=== PATIENT | female | born 1930 | race Two or more races ===

== ENCOUNTER 2021-06-19 11:48 | Inpatient (IN) | payer MEDICARE ==
[2021-06-19] MEDS ORDERED: SODIUM CHLORIDE 0.9% 500 ML 500 ML IV STA (12:27)
[2021-06-19] MEDS ORDERED: LIDOCAINE 1% INJ 10MG/ML (20 ML MDV) SQ ONE (12:28)
--- NOTE | 2021-06-19 12:30 | ED ---
General Adult HPI <Nessa Stockton - Last Filed: 06/19/21 15:45> - General Source: patient, RN notes reviewed, old records reviewed Mode of arrival: EMS Limitations: no limitations <Bruno Walker - Last Filed: 06/19/21 15:55> - General Chief complaint: Fall Stated complaint: Fall Time Seen by Provider: 06/19/21 12:00 - History of Present Illness Initial comments: This is an 89-year-old female presents emergency department stating that she was coming off of the steps and on the last step when she landed she lost her balance and fell Rogers hit her head. Patient denies any headache patient denies any numbness weakness. Patient denies any neck pain. Patient denies any loss of consciousness or being days. Patient denies being on any blood thinners. Patient denies any other complaints at this time. Patient denies chest pain palpitations difficulty breathing shortness breath. Patient denies any blurred vision. Patient denies abdominal pain patient has nausea vomiting diarrhea per patient denies any swelling to the legs. Patient denies any extremity injury at all. Patient states she is ALLERGIC to tetanus. (Bruno Walker) - Related Data Allergies Allergy/AdvReac Type Severity Reaction Status Date / Time amoxicillin Allergy Rash/Hives Verified 06/19/21 12:03 Sulfa (Sulfonamide Allergy Unknown Verified 06/19/21 12:03 Antibiotics) Tetanus Vaccines and Toxoid Allergy Unknown Verified 06/19/21 12:03 diavan Allergy Unknown Uncoded 06/19/21 12:03 Review of Systems ROS Other: All systems not noted in ROS Statement are negative. <Nessa Stockton - Last Filed: 06/19/21 15:45> ROS Other: All systems not noted in ROS Statement are negative. <Bruno Walker - Last Filed: 06/19/21 15:55> ROS Statement: Those systems with pertinent positive or pertinent negative responses have been documented in the HPI. Past Medical History Past Medical History: Heart Failure, Hyperlipidemia, Hypertension, Pneumonia, Thyroid Disorder Past Surgical History: Adenoidectomy, Cholecystectomy, Tonsillectomy Smoking Status: Never smoker Past Alcohol Use History: None Reported Past Drug Use History: None Reported <Bruno Walker - Last Filed: 06/19/21 15:55> General Exam Limitations: no limitations <Bruno Walker - Last Filed: 06/19/21 15:55> - General Exam Comments Initial Comments: GENERAL: Patient is well-developed and well-nourished. Patient is nontoxic and well- hydrated and is in mild distress. ENT: Neck is soft and supple. No significant lymphadenopathy is noted. Oropharynx is clear. Moist mucous membranes. Neck has full range of motion without eliciting any pain. EYES: The sclera were anicteric and conjunctiva were pink and moist. Extraocular movements were intact and pupils were equal round and reactive to light. Eyelids were unremarkable. PULMONARY: Unlabored respirations. Good breath sounds bilaterally. No audible rales rhonchi or wheezing was noted. CARDIOVASCULAR: There is a regular rate and rhythm without any murmurs gallops or rubs. ABDOMEN: Soft and nontender with normal bowel sounds. SKIN: Patient has a 3 cm laceration to the right eyebrow area. NEUROLOGIC: Patient is alert and oriented x3. Cranial nerves II through XII are grossly intact. Motor and sensory are also intact. Normal speech, volume and content. Symmetrical smile. MUSCULOSKELETAL: Normal extremities with adequate strength and full range of motion. No lower extremity swelling or edema. No calf tenderness. LYMPHATICS: No significant lymphadenopathy is noted PSYCHIATRIC: Normal psychiatric evaluation. N (Bruno Walker) Course Vital Signs 06/19/21 06/19/21 06/19/21 11:53 12:13 12:55 Temperature 97.8 F Pulse Rate 60 63 Respiratory 18 18 Rate Blood Pressure 240/120 254/96 O2 Sat by Pulse 99 99 Oximetry 06/19/21 06/19/21 13:59 14:26 Temperature Pulse Rate 53 L 60 Respiratory 18 18 Rate Blood Pressure 162/125 175/85 O2 Sat by Pulse 95 95 Oximetry Procedures - Laceration Laceration #1 Consent Obtained: verbal consent Indication: laceration Site: face (right eyebrow) Size (cm): 2 Description: linear Depth: simple, single layer Anesthetic Used: lidocaine 1% Anesthesia Technique: local infiltration Amount (mls): 3 Pre-repair: irrigated extensively Type of Sutures: nylon Size of Sutures: 5-0 Number of Sutures: 5 Technique: simple, interrupted Patient Tolerated Procedure: well <Nessa Stockton - Last Filed: 06/19/21 15:45> Medical Decision Making - Lab Data Result diagrams: 06/19/21 12:32 06/19/21 12:32 <Nessa Stockton - Last Filed: 06/19/21 15:45> - Lab Data Result diagrams: 06/19/21 12:32 06/19/21 12:32 <Bruno Walker - Last Filed: 06/19/21 15:55> - Medical Decision Making EKG shows sinus bradycardia 51 bpm [place] interval 284 QRS is 96 QT interval 72 QTC is 462 per patient's EKG shows no ST segment elevation. Patient has some slight ST segment depression in precordial leads V4 V5 and V6. Chest x-ray showed no acute abnormality. CT of the brain showed no acute abnormality. Patient expansion chest pain while in the emergency department was given aspirin nitro patient she stated the pain subsided. Patient does however have significant dementia as well for her to remember those symptoms but I in the emergency department when they occurred. I spoke with some physicians agreed to admit the patient admitted the patient wrote admitting orders. (Bruno Walker) - Lab Data Lab Results 06/19/21 06/19/21 06/19/21 Range/Units 12:32 12:32 12:32 WBC 4.2 (3.8-10.6) k/uL RBC 3.91 (3.80-5.40) m/uL Hgb 12.2 (11.4-16.0) gm/dL Hct 36.2 (34.0-46.0) % MCV 92.4 (80.0-100.0) fL MCH 31.1 (25.0-35.0) pg MCHC 33.6 (31.0-37.0) g/dL RDW 14.7 (11.5-15.5) % Plt Count 116 L (150-450) k/uL MPV 8.7 Neutrophils % 64 % Lymphocytes % 26 % Monocytes % 6 % Eosinophils % 2 % Basophils % 0 % Neutrophils # 2.6 (1.3-7.7) k/uL Lymphocytes # 1.1 (1.0-4.8) k/uL Monocytes # 0.3 (0-1.0) k/uL Eosinophils # 0.1 (0-0.7) k/uL Basophils # 0.0 (0-0.2) k/uL PT 11.4 (9.0-12.0) sec INR 1.1 (<1.2) APTT 24.8 (22.0-30.0) sec Sodium 137 (137-145) mmol/L Potassium 4.0 (3.5-5.1) mmol/L Chloride 107 (98-107) mmol/L Carbon Dioxide 23 (22-30) mmol/L Anion Gap 7 mmol/L BUN 20 H (7-17) mg/dL Creatinine 0.99 (0.52-1.04) mg/dL Est GFR (CKD-EPI)AfAm 59 (>60 ml/min/1.73 sqM) Est GFR (CKD-EPI)NonAf 51 (>60 ml/min/1.73 sqM) Glucose 98 (74-99) mg/dL Calcium 9.6 (8.4-10.2) mg/dL Magnesium 2.2 (1.6-2.3) mg/dL Total Bilirubin 2.3 H (0.2-1.3) mg/dL AST 29 (14-36) U/L ALT 17 (4-34) U/L Alkaline Phosphatase 94 (38-126) U/L Troponin I (0.000-0.034) ng/mL Total Protein 6.8 (6.3-8.2) g/dL Albumin 4.2 (3.5-5.0) g/dL 06/19/21 Range/Units 12:32 WBC (3.8-10.6) k/uL RBC (3.80-5.40) m/uL Hgb (11.4-16.0) gm/dL Hct (34.0-46.0) % MCV (80.0-100.0) fL MCH (25.0-35.0) pg MCHC (31.0-37.0) g/dL RDW (11.5-15.5) % Plt Count (150-450) k/uL MPV Neutrophils % % Lymphocytes % % Monocytes % % Eosinophils % % Basophils % % Neutrophils # (1.3-7.7) k/uL Lymphocytes # (1.0-4.8) k/uL Monocytes # (0-1.0) k/uL Eosinophils # (0-0.7) k/uL Basophils # (0-0.2) k/uL PT (9.0-12.0) sec INR (<1.2) APTT (22.0-30.0) sec Sodium (137-145) mmol/L Potassium (3.5-5.1) mmol/L Chloride (98-107) mmol/L Carbon Dioxide (22-30) mmol/L Anion Gap mmol/L BUN (7-17) mg/dL Creatinine (0.52-1.04) mg/dL Est GFR (CKD-EPI)AfAm (>60 ml/min/1.73 sqM) Est GFR (CKD-EPI)NonAf (>60 ml/min/1.73 sqM) Glucose (74-99) mg/dL Calcium (8.4-10.2) mg/dL Magnesium (1.6-2.3) mg/dL Total Bilirubin (0.2-1.3) mg/dL AST (14-36) U/L ALT (4-34) U/L Alkaline Phosphatase (38-126) U/L Troponin I <0.012 (0.000-0.034) ng/mL Total Protein (6.3-8.2) g/dL Albumin (3.5-5.0) g/dL Disposition <Nessa Stockton - Last Filed: 06/19/21 15:45> Time of Disposition: 15:55 <Bruno Walker - Last Filed: 06/19/21 15:55> Clinical Impression: Forehead laceration, Chest pain, Hypertensive urgency Disposition: ADMITTED IP TO THIS HOSP Referrals: Yu Dasilva MD [Primary Care Provider] - 1-2 days
[2021-06-19] MEDS ORDERED: hydrALAZINE HCL 20 MG/ML 1 ML VIAL IVP STA (12:31)
[2021-06-19 12:42] LABS: Basophils % (A) 0 %; Eosinophils # (A) 0.1 k/uL (0-0.7); Eosinophils % (A) 2 %; HCT 36.2 % (34.0-46.0); HGB 12.2 gm/dL (11.4-16.0); Lymphocytes # (A) 1.1 k/uL (1.0-4.8); Lymphocytes % (A) 26 %; MCH 31.1 pg (25.0-35.0); MCHC 33.6 g/dL (31.0-37.0); MCV 92.4 fL (80.0-100.0); Mean Platelet Volume 8.7; Monocytes # (A) 0.3 k/uL (0-1.0); Monocytes % (A) 6 %; Neutrophils # (A) 2.6 k/uL (1.3-7.7); Neutrophils % (A) 64 %; Platelet Count 116 k/uL (150-450); RBC 3.91 m/uL (3.80-5.40); RDW 14.7 % (11.5-15.5); WBC 4.2 k/uL (3.8-10.6)
[2021-06-19 12:56] LABS: INR 1.1 (<1.2); Partial Thromboplastin Time 24.8 sec (22.0-30.0); Prothrombin Time 11.4 sec (9.0-12.0)
[2021-06-19 12:57] LABS: Albumin 4.2 g/dL (3.5-5.0); Calcium 9.6 mg/dL (8.4-10.2); Magnesium 2.2 mg/dL (1.6-2.3); Total Bilirubin 2.3 mg/dL (0.2-1.3); Total Protein 6.8 g/dL (6.3-8.2)
[2021-06-19] MEDS ORDERED: ONDANSETRON 4 MG/2 ML VIAL IVP STA (14:11)
[2021-06-19] MEDS ORDERED: ASPIRIN 81 MG PO STA (14:11)
[2021-06-19] MEDS ORDERED: NITROGLYCERIN OINT 1 INCH/GM PACKET TOPICAL STA (14:11)
--- NOTE | 2021-06-19 14:18 | CT ---
EXAMINATION TYPE: CT brain dale nunez con DATE OF EXAM: 06/19/2021 COMPARISON: NONE HISTORY: Fall today. Head injury and neck pain. CT DLP: 1314 mGycm. Automated Exposure Control for Dose Reduction was Utilized. TECHNIQUE: CT scan of the head and cervical spine are performed without contrast. FINDINGS: There is no acute intracranial hemorrhage or midline shift identified. Mild ventricular a nd sulcal prominence. Moderate low-attenuation in the periventricular white matter. The calvarium is intact. The globes are intact and the visualized sinuses are clear. Cervical spine is visualized in its entirety from C1 through upper thoracic levels and demonstrates s atisfactory alignment without evidence of acute fracture or dislocation. Prevertebral soft tissue ap pears within normal limits. The C1-C2 articulation is within normal limits on the coronal images. V ertebral body heights are maintained. Moderate disc space narrowing and spurring C4-C5 and C5-C6 leve ls. Osseous structures are demineralized. Posterior spur disc complex effacing the anterior thecal sa c at C4-C5 level. Review of axial images shows multilevel uncovertebral facet degenerative changes contributing to fora rose narrowing. Reference right C3-C4 and C4-C5 levels. Lung apices show no pneumothorax. Mild calci fied plaque bilateral carotid bulb level is present. IMPRESSION: 1. There is no acute fracture or dislocation evident in the cervical spine. 2. No acute intracranial hemorrhage or midline shift is seen.
--- NOTE | 2021-06-19 14:45 | XR ---
EXAMINATION TYPE: XR chest 2V DATE OF EXAM: 06/19/2021 COMPARISON: NONE HISTORY: Fall injury today with pain. TECHNIQUE: Frontal and lateral views of the chest are obtained. FINDINGS: The osseous structures are demineralized. Persistent cardiomegaly with atherosclerotic tho racic aorta. Reticular interstitial prominence favoring chronic parenchymal changes bilaterally witho ut suspicious focal airspace opacity, significant pleural effusion, or pneumothorax seen bilaterally. . IMPRESSION: Cardiomegaly and chronic parenchyma changes without acute pulmonary process.
[2021-06-19] MEDS ORDERED: NITROGLYCERIN SL TABS 0.4 MG TAB SUBLINGUAL PRN (15:56)
--- NOTE | 2021-06-19 16:52 | P.HPIM ---
History of Present Illness H&P Date: 06/19/21 Chief Complaint: Fall This is an 89-year-old female presents emergency department stating that she was coming off of the steps and on the last step when she landed she lost her balance and fell Rogers hit her head. Patient denies any headache patient denies any numbness weakness. Patient denies any neck pain. Patient denies any loss of consciousness or being days. Patient denies being on any blood thinners. Patient denies any other complaints at this time. Patient denies chest pain palpitations difficulty breathing shortness breath. Patient denies any blurred vision. Patient denies abdominal pain patient has nausea vomiting diarrhea per patient denies any swelling to the legs. Patient denies any extremity injury at all. Patient states she is ALLERGIC to tetanus. Patient currently feels okay chest pain resolved patient is a poor historian has been also having some confusion Review of systems and systems has been reviewed all negative and positive findings as per history of present illness Constitutional: No acute distress, conversant, pleasant Eyes: Anicteric sclerae, moist conjunctiva, no lid-lag PERRLA ENMT: NC/AT Oropharynx clear, no erythema, exudates Neck: Supple, FROM, no masses, or JVD No carotid bruits No thyromegaly Lungs: Clear to auscultation Clear to percussion Normal respiratory effort, no accessory muscle use Cardiovascular: Heart regular in rate and rhythm, No murmurs, gallops, or rubs No peripheral edema Abdominal: Soft Nontender, no guarding, rebound or rigidity Abdomen moving with respiration Normoactive bowel sounds No hepatomegaly, No splenomegaly No palpable mass No abdominal wall hernia noted Skin: Normal temperature, tone, texture, turgor No induration No subcutaneous nodules No rash, lesions No ulcers Extremities: No digital cyanosis No clubbing Pedal pulses intact and symmetrical Radial pulses intact and symmetrical Normal gait and station No calf tenderness Psychiatric:Alert and oriented to person, place and time Appropriate affect Intact judgement Neuro: Muscles Strength 5/5 in all 4 extremities Sensation to light touch grossly present throughout Cranial nerves II-XII grossly intact No focal sensory deficits Hypertensive urgency currently resolved we'll monitor overnight Chest pain with typical and atypical features observe overnight Fall no evidence of acute coronary syndrome or CVA at this time check cardiac enzymes and monitor Mild confusion likely due to dementia Possible discharge to the assisting living in a.m. if cardiac enzymes are negative and is the patient is not more confused Past Medical History Past Medical History: Heart Failure, Hyperlipidemia, Hypertension, Pneumonia, Thyroid Disorder Past Surgical History: Adenoidectomy, Cholecystectomy, Tonsillectomy Smoking Status: Never smoker Past Alcohol Use History: None Reported Past Drug Use History: None Reported Medications and Allergies Home Medications Medication Instructions Recorded Confirmed Type Atorvastatin [Lipitor] 20 mg PO HS 06/19/21 06/19/21 History Calcium/Magnesium/Zinc 1 tab PO DAILY 06/19/21 06/19/21 History [Rjjmndf-Bnjzrpqki-Jlox Tablet] Carvedilol [Coreg] 25 mg PO BID-W/MEALS 06/19/21 06/19/21 History Cyanocobalamin (Vitamin B-12) 5,000 mcg PO DAILY 06/19/21 06/19/21 History [Vitamin B12] Doxazosin [Cardura] 4 mg PO HS 06/19/21 06/19/21 History Escitalopram Oxalate [Lexapro] 10 mg PO DAILY 06/19/21 06/19/21 History Famotidine 40 mg PO DAILY 06/19/21 06/19/21 History Furosemide [Lasix] 20 mg PO DAILY 06/19/21 06/19/21 History Levothyroxine Sodium [Synthroid] 88 mcg PO DAILY 06/19/21 06/19/21 History Losartan Potassium 100 mg PO HS 06/19/21 06/19/21 History Potassium Chloride [Potassium 8 meq PO DAILY 06/19/21 06/19/21 History Chloride ER] Vit C/E/Zn/Coppr/Lutein/Zeaxan 1 cap PO BID 06/19/21 06/19/21 History [Preservision Areds 2 Softgel] Allergies Allergy/AdvReac Type Severity Reaction Status Date / Time amoxicillin Allergy Rash/Hives Verified 06/19/21 16:08 Sulfa (Sulfonamide Allergy Unknown Verified 06/19/21 16:08 Antibiotics) Tetanus Vaccines and Toxoid Allergy Unknown Verified 06/19/21 16:08 valsartan [From Diovan] Allergy Unknown Verified 06/19/21 16:08 Physical Exam Vitals: Vital Signs Temp Pulse Resp BP Pulse Ox 06/19/21 16:00 58 L 18 162/77 95 06/19/21 14:26 60 18 175/85 95 06/19/21 13:59 53 L 18 162/125 95 06/19/21 12:55 63 18 254/96 99 06/19/21 12:13 240/120 06/19/21 11:53 97.8 F 60 18 99 Intake and Output 06/19/21 06/19/21 06/19/21 06:59 14:59 22:59 Other: Weight 46.266 kg Results CBC & Chem 7: 06/19/21 12:32 06/19/21 12:32 Labs: Abnormal Lab Results - Last 24 Hours (Table) 06/19/21 06/19/21 Range/Units 12:32 12:32 Plt Count 116 L (150-450) k/uL BUN 20 H (7-17) mg/dL Total Bilirubin 2.3 H (0.2-1.3) mg/dL
[2021-06-19] MEDS ORDERED: ONDANSETRON 4 MG/2 ML VIAL IVP PRN (16:56)
[2021-06-19] MEDS ORDERED: ACETAMINOPHEN TAB 325 MG TAB PO PRN (16:56)
[2021-06-19] MEDS ORDERED: traMADol 50 MG TAB PO PRN (16:56)
[2021-06-19] MEDS: NITROGLYCERIN OINT 1 INCH/GM PACKET TOPICAL SCH (19:59)
[2021-06-19] MEDS: LOSARTAN 50 MG TAB PO SCH (19:59)
[2021-06-19] MEDS: DOXAZOSIN 4 MG TAB PO SCH (19:59)
[2021-06-19] MEDS: ATORVASTATIN 20 MG TAB PO SCH (19:59)
[2021-06-20] MEDS: NITROGLYCERIN OINT 1 INCH/GM PACKET TOPICAL SCH ×2 (00:55→05:59)
[2021-06-20] MEDS: LEVOTHYROXINE 88 MCG TAB PO SCH (05:59)
[2021-06-20] MEDS ORDERED: ASPIRIN 325 MG TAB PO SCH (09:00)
[2021-06-20 09:01] LABS: Basophils # (A) 0.01 X 10*3/uL (0.00-0.10); Basophils % (A) 0.2 %; Eosinophils # (A) 0.05 X 10*3/uL (0.04-0.35); HCT 31.2 % (37.2-46.3); HGB 10.1 g/dL (12.0-15.0); Lymphocytes # (A) 0.88 X 10*3/uL (0.90-5.00); Lymphocytes % (A) 17.4 %; MCH 30.3 pg (27.0-32.0); MCHC 32.4 g/dL (32.0-37.0); MCV 93.7 fL (80.0-97.0); Mean Platelet Volume 11.8 fL (9.5-12.2); Monocytes # (A) 0.48 X 10*3/uL (0.20-1.00); Monocytes % (A) 9.5 %; Neutrophils % (A) 71.3 %; Platelet Count 110 X 10*3/uL (140-440); RBC 3.33 X 10*6/uL (4.10-5.20); RDW 15.1 % (11.5-14.5); WBC 5.05 X 10*3/uL (4.50-10.00)
[2021-06-20 09:32] LABS: Chol/HDL Ratio 2.22 Ratio; LDL Cholesterol,Calculated 52.5 mg/dL (0.0-131.0)
[2021-06-20 09:36] LABS: ALT 11 U/L (8-44); AST 23 U/L (13-35); African American GFR (CKD) 46.4 (60.0-200.0); Albumin 3.6 g/dL (3.8-4.9); Albumin/Globulin Ratio 2.25 (1.60-3.17); Alkaline Phosphatase 82 U/L (41-126); BUN/Creat Ratio 16.67 Ratio (12.00-20.00); Calcium 8.8 mg/dL (8.7-10.3); Carbon Dioxide 22.6 mmol/L (21.6-31.8); Chloride 108 mmol/L (96-109); Globulin 1.6 g/dL (1.6-3.3); Glucose 89 mg/dL (70-110); Potassium 3.5 mmol/L (3.5-5.5); Sodium 144 mmol/L (135-145); Total Protein 5.2 g/dL (6.2-8.2)
[2021-06-20] MEDS: carvediloL 12.5 MG TAB PO SCH ×2 (09:43→18:18)
[2021-06-20] MEDS: ESCITALOPRAM 10 MG TAB PO SCH (09:44)
[2021-06-20] MEDS: ASPIRIN 81 MG PO SCH (09:45)
[2021-06-20 10:07] VITALS: BMI 18.0
--- NOTE | 2021-06-20 11:06 | P.CRDCN ---
History of Present Illness History of present illness: HISTORY OF PRESENTING ILLNESS This is a pleasant 89-year-old female past medical history significant for hypertension, dyslipidemia and hypothyroidism. She denies prior history of coronary artery disease and does not follow in the office with a culturist. She is somewhat of a poor historian. Information is mostly obtained from nursing staff and medical record however the patient doesn't answer questions about the situation appropriately. We have been asked to see in consultation for chest pain. She states she was getting off the bus when she tripped over a curb causing her to fall. She denies syncope. She struck her face and has a laceration over the right eye with a bandage in place. She complains of feeling discomfort in her chest prior to falling. She denies shortness of breath, dizziness or palpitations. Blood pressure on arrival was 240/120 and 254/96. DIAGNOSTICS EKG reveals sinus bradycardia heart rate of [address] abnormalities in the lateral leads. Telemetry tracings indicate sinus rhythm. Chest xray chronic parenchymal changes with no acute cardiopulmonary process. CT head and C-spine unremarkable. Laboratory reviewed, WBC 5, hemoglobin 10.1, platelets 110, sodium 144, potassium 3.5, creatinine 1.2, magnesium 2.2, troponin negative 2, 0.250, 0.142, LDL 52 and HDL 54. Current cardiac medications include Coreg 25 mg twice a day, atorvastatin 20 mg at bedtime, doxazosin 4 mg at bedtime, Lasix 20 mg daily and losartan 100 mg at bedtime. REVIEW OF SYSTEMS At the time of my exam: CONSTITUTIONAL: Denies fever or chills. CARDIOVASCULAR: Denies chest pain, shortness of breath, orthopnea, PND or palpitations. RESPIRATORY: Denies cough. GASTROINTESTINAL: Denies abdominal pain, diarrhea, constipation, nausea or vomiting. MUSCULOSKELETAL: Denies myalgias. NEUROLOGIC: Denies numbness, tingling, headache or weakness. ENDOCRINE: Denies fatigue, weight change, polydipsia or polyurina. GENITOURINARY: Denies burning, hematuria or urgency with micturation. HEMATOLOGIC: Denies history of anemia or bleeding. PHYSICAL EXAMINATION Blood pressure 169/69 heart rate 56 afebrile and maintaining oxygen saturation on room air. CONSTITUTIONAL: No apparent distress. HEENT: Head is normocephalic. Pupils are equal, round. Sclerae anicteric. Mucous membranes of the mouth are moist. No JVD. No carotid bruit. CHEST EXAMINATION: Lungs are clear to auscultation. No chest wall tenderness is noted on palpation or with deep breathing. HEART EXAMINATION: Regular rate and rhythm. S1, S2 heard. Systolic ejection murmur at the base, no gallops or rub. ABDOMEN: Soft, nontender. EXTREMITIES: 2+ peripheral pulses, no lower extremity edema and no calf tenderness. NEUROLOGIC EXAMINATION: Patient is awake, alert and oriented x3. ASSESSMENT Mechanical fall NSTEMI Chest pain Hypertensive emergency Dyslipidemia Altered mental status PLAN Repeat troponin to assess trend. Obtain 2D echocardiogram and doppler study to assess cardiac structure and function. Add imdur 30 mg daily. Give lovenox 40 mg SQ daily. Continue maximum medical therapy. We will continue to follow closely. Nurse Practitioner note has been reviewed, I agree with a documented findings and plan of care. Patient was seen and examined. Past Medical History Past Medical History: Heart Failure, Hyperlipidemia, Hypertension, Pneumonia, Thyroid Disorder History of Any Multi-Drug Resistant Organisms: None Reported Past Surgical History: Adenoidectomy, Cholecystectomy, Tonsillectomy Smoking Status: Never smoker Past Alcohol Use History: None Reported Past Drug Use History: None Reported Medications and Allergies Home Medications Medication Instructions Recorded Confirmed Type Atorvastatin [Lipitor] 20 mg PO HS 06/19/21 06/19/21 History Calcium/Magnesium/Zinc 1 tab PO DAILY 06/19/21 06/19/21 History [Ykapdrk-Khknluwai-Lpxl Tablet] Carvedilol [Coreg] 25 mg PO BID-W/MEALS 06/19/21 06/19/21 History Cyanocobalamin (Vitamin B-12) 5,000 mcg PO DAILY 06/19/21 06/19/21 History [Vitamin B12] Doxazosin [Cardura] 4 mg PO HS 06/19/21 06/19/21 History Escitalopram Oxalate [Lexapro] 10 mg PO DAILY 06/19/21 06/19/21 History Famotidine 40 mg PO DAILY 06/19/21 06/19/21 History Furosemide [Lasix] 20 mg PO DAILY 06/19/21 06/19/21 History Levothyroxine Sodium [Synthroid] 88 mcg PO DAILY 06/19/21 06/19/21 History Losartan Potassium 100 mg PO HS 06/19/21 06/19/21 History Potassium Chloride [Potassium 8 meq PO DAILY 06/19/21 06/19/21 History Chloride ER] Vit C/E/Zn/Coppr/Lutein/Zeaxan 1 cap PO BID 06/19/21 06/19/21 History [Preservision Areds 2 Softgel] Allergies Allergy/AdvReac Type Severity Reaction Status Date / Time amoxicillin Allergy Rash/Hives Verified 06/19/21 16:08 Sulfa (Sulfonamide Allergy Unknown Verified 06/19/21 16:08 Antibiotics) Tetanus Vaccines and Toxoid Allergy Unknown Verified 06/19/21 16:08 valsartan [From Diovan] Allergy Unknown Verified 06/19/21 16:08 Physical Exam Vitals: Vital Signs Temp Pulse Pulse Resp BP BP Pulse Ox 06/20/21 07:00 97.9 F 56 L 18 169/69 98 06/20/21 02:39 61 16 06/20/21 01:00 98.3 F 61 16 179/65 97 06/19/21 20:00 97.8 F 67 14 121/63 97 06/19/21 19:59 67 14 06/19/21 17:50 97.4 F L 16 177/58 98 06/19/21 17:09 60 18 112/61 96 06/19/21 16:00 58 L 18 162/77 95 06/19/21 14:26 60 18 175/85 95 06/19/21 13:59 53 L 18 162/125 95 06/19/21 12:55 63 18 254/96 99 06/19/21 12:13 240/120 06/19/21 11:53 97.8 F 60 18 99 Intake and Output 06/19/21 06/20/21 06/20/21 22:59 06:59 14:59 Intake Total 180 Balance 180 Intake: Oral 180 Other: Voiding Method Toilet Toilet # Voids 1 0 Weight 46.266 kg Results 06/20/21 05:56 06/20/21 05:56 Cardiac Enzymes 06/19/21 06/19/21 06/19/21 Range/Units 12:32 12:32 17:05 AST 29 (14-36) U/L Troponin I <0.012 <0.012 (0.000-0.034) ng/mL 06/19/21 06/19/21 Range/Units 21:05 22:42 AST (14-36) U/L Troponin I 0.142 H* 0.250 H* (0.000-0.034) ng/mL Coagulation 06/19/21 Range/Units 12:32 PT 11.4 (9.0-12.0) sec APTT 24.8 (22.0-30.0) sec CBC 06/19/21 Range/Units 12:32 WBC 4.2 (3.8-10.6) k/uL RBC 3.91 (3.80-5.40) m/uL Hgb 12.2 (11.4-16.0) gm/dL Hct 36.2 (34.0-46.0) % Plt Count 116 L (150-450) k/uL Comprehensive Metabolic Panel 06/19/21 Range/Units 12:32 Sodium 137 (137-145) mmol/L Potassium 4.0 (3.5-5.1) mmol/L Chloride 107 (98-107) mmol/L Carbon Dioxide 23 (22-30) mmol/L BUN 20 H (7-17) mg/dL Creatinine 0.99 (0.52-1.04) mg/dL Glucose 98 (74-99) mg/dL Calcium 9.6 (8.4-10.2) mg/dL AST 29 (14-36) U/L ALT 17 (4-34) U/L Alkaline Phosphatase 94 (38-126) U/L Total Protein 6.8 (6.3-8.2) g/dL Albumin 4.2 (3.5-5.0) g/dL Current Medications Generic Name Dose Route Start Last Admin Trade Name Freq PRN Reason Stop Dose Admin Acetaminophen 650 mg 06/19/21 16:56 Acetaminophen Tab 325 Mg Tab PO Q6HR PRN Mild Pain or Fever > 100.5 Aspirin 81 mg 06/20/21 09:00 Aspirin 81 Mg PO DAILY OTILIO Atorvastatin Calcium 20 mg 06/19/21 21:00 06/19/21 19:59 Atorvastatin 20 Mg Tab PO 20 mg HS OTILIO Administration Carvedilol 25 mg 06/20/21 07:30 Carvedilol 12.5 Mg Tab PO BID-W/MEALS OTILIO Doxazosin Mesylate 4 mg 06/19/21 21:00 06/19/21 19:59 Doxazosin 4 Mg Tab PO 4 mg HS OTILIO Administration Escitalopram Oxalate 10 mg 06/20/21 09:00 Escitalopram 10 Mg Tab PO DAILY OTILIO Levothyroxine Sodium 88 mcg 06/20/21 06:30 06/20/21 05:59 Levothyroxine 88 Mcg Tab PO 88 mcg 0630 OTILIO Administration Losartan Potassium 100 mg 06/19/21 21:00 06/19/21 19:59 Losartan 50 Mg Tab PO 100 mg HS OTILIO Administration Nitroglycerin 0.4 mg 06/19/21 15:56 Nitroglycerin Sl Tabs 0.4 Mg Tab SUBLINGUAL Q5M PRN Chest Pain Nitroglycerin 1 inch 06/19/21 18:00 06/20/21 05:59 Nitroglycerin Oint 1 Inch/Gm Packet TOPICAL 1 inch Q6HR OTILIO Administration Ondansetron HCl 4 mg 06/19/21 16:56 Ondansetron 4 Mg/2 Ml Vial IVP Q8HR PRN Nausea And Vomiting Tramadol HCl 50 mg 06/19/21 16:56 Tramadol 50 Mg Tab PO Q6H PRN Moderate Pain Intake and Output 06/19/21 06/20/21 06/20/21 22:59 06:59 14:59 Intake Total 180 Balance 180 Intake: Oral 180 Other: Voiding Method Toilet Toilet # Voids 1 0 Weight 46.266 kg 06/19/21 12:32 06/19/21 12:32
[2021-06-20] MEDS: ENOXAPARIN 40 MG/0.4 ML SYRINGE SQ SCH (11:45)
[2021-06-20] MEDS: ISOSORBIDE MONONITRATE ER 30 MG TAB.ER.24H PO SCH (11:45)
--- NOTE | 2021-06-20 12:10 | P.PN ---
Subjective Progress Note Date: 06/20/21 Hospital course: Patient is a very pleasant 89-year-old female with a past medical history of CAD, CHF, hypertension, hyperlipidemia, and hypothyroidism. She presents to the emergency department on with a chief complaint of mechanical fall in which patient tripped upon getting off of breath resulting in injury to her head. In the emergency department patient was found to have hypertensive emergency with blood pressure of 240/120 followed by 254/96 followed by patient's complaints of chest pain. CT head negative for acute intercranial process and CT cervical spine showing no acute fracture or dislocation to cervical spine. Chest x-ray negative for acute cardiopulmonary process positive for cardiomegaly with chronic parenchymal changes. EKG completed showing sinus bradycardia at 51 bpm. Initial troponin less than 0.0122 draws followed by 0.142, 0.250, and 0.735. Patient is currently admitted under our services for treatment of NSTEMI with consultation to cardiology. Cardiology recommending continued trending of troponin, obtaining 2-D echocardiogram, and added Imdur to current daily medication regimen. Currently blood pressure stabilized at 169/69. Physical exam: Patient seen and fully evaluated at bedside. She is sitting up in chair and reports feeling "much better" this morning. She was alert to person, place, and situation. She reports that she did have some chest pain last night, but currently reports "it's all gone." Patient states only complaint is pain in her right hand. Vital signs reviewed and stable. General: Nontoxic, no distress and appears stated age. Derm: Skin warm and dry, normal coloration for ethnicity. Small bruise to palmar surface of right hand Head: Normocephalic and symmetric. Eyes: No lid lag, and anicteric sclera. Patient with mild bruising to right orbital region and small laceration above right eyebrow with dressing in place. Mouth: no lip lesions, mucus membranes moist Cardiovascular: regular rate and rhythm with normal S1S2, murmur present, positive posterior tibial pulses bilaterally, and cap refill < 2 seconds. Lungs: Respirations even, regular, and unlabored on room air. Lungs CTA bilaterally, no rhonchi, no rales, no wheezing, and no accessory muscle usage. Abdominal: soft, nontender to palpation, no guarding, no appreciable organomegaly Ext: ROM intact. No gross muscle atrophy, no edema, no contractures Neuro: Speech clear, face symmetrical and CN II-XII grossly intact with no noted focal neuro deficits Psych: Alert and oriented to person, place, time, and situation. Appropriate and pleasant affect. Assessment and Plan of Care: NSTEMI -Initial troponin less than 0.0122 draws followed by 0.142, 0.250, and 0.735. -EKG completed showing sinus bradycardia at 51 bpm -Cardiology following, recommending maximum medical therapy -Telemetry monitoring -Cardiac diet -Continuation of daily Aspirin, atorvastatin, carvedilol, Imdur, and losartan -Echocardiogram completed, awaiting results. -Lipid profile with a.m. labs Mechanical fall Head injury -CT head negative for acute intercranial process and CT cervical spine showing no acute fracture or dislocation to cervical spine. -Patient complaining of pain to right hand, mild bruising noted to palmar surface. X-ray to be completed. -Fall precautions -Symptomatic care and pain management Hypertensive emergency, improved -Monitor vital signs and continue medication regimen with carvedilol, Imdur, and losartan. Hyperlipidemia -Continue daily medication regimen with atorvastatin 20 mg nightly. -Heart healthy diet -Lipid profile with a.m. labs Hypothyroidism -Continue daily medication regimen L thyroxine 88 g each morning. CODE STATUS: Full code DVT prophylaxis: Lovenox Discussed with: Patient and RN Anticipated discharge date: 1-[address]: Home A total of 45 minutes was spent on the care of this complex patient more than 50% of the time was spent in counseling and care coordination. Objective - Vital Signs Vital signs: Vital Signs Temp 97.9 F 06/20/21 07:00 Pulse 56 L 06/20/21 08:00 Resp 18 06/20/21 08:00 BP 169/69 06/20/21 07:00 Pulse Ox 98 06/20/21 07:00 Intake & Output 06/19/21 06/20/21 06/20/21 18:59 06:59 18:59 Intake Total 180 Balance 180 Weight 46.266 kg 46.266 kg Intake: Oral 180 Other: Voiding Method Toilet Toilet # Voids 0 1 - Labs CBC & Chem 7: 06/20/21 05:56 06/20/21 05:56 Labs: Abnormal Lab Results - Last 24 Hours (Table) 06/19/21 06/19/21 06/19/21 Range/Units 12:32 12:32 21:05 RBC (4.10-5.20) X 10*6/uL Hgb (12.0-15.0) g/dL Hct (37.2-46.3) % RDW (11.5-14.5) % Plt Count 116 L (150-450) k/uL Lymphocytes # (0.90-5.00) X 10*3/uL Anion Gap (4.00-12.00) mmol/L BUN 20 H (7-17) mg/dL Est GFR (CKD-EPI)AfAm (60.0-200.0) Est GFR (CKD-EPI)NonAf (60.0-200.0) Total Bilirubin 2.3 H (0.2-1.3) mg/dL Troponin I 0.142 H* (0.000-0.034) ng/mL Total Protein (6.2-8.2) g/dL Albumin (3.8-4.9) g/dL 06/19/21 06/20/21 06/20/21 Range/Units 22:42 05:56 05:56 RBC 3.33 L (4.10-5.20) X 10*6/uL Hgb 10.1 L (12.0-15.0) g/dL Hct 31.2 L (37.2-46.3) % RDW 15.1 H (11.5-14.5) % Plt Count 110 L (150-450) k/uL Lymphocytes # 0.88 L (0.90-5.00) X 10*3/uL Anion Gap 13.40 H (4.00-12.00) mmol/L BUN (7-17) mg/dL Est GFR (CKD-EPI)AfAm 46.4 L (60.0-200.0) Est GFR (CKD-EPI)NonAf 40.0 L (60.0-200.0) Total Bilirubin 1.80 H (0.2-1.3) mg/dL Troponin I 0.250 H* (0.000-0.034) ng/mL Total Protein 5.2 L (6.2-8.2) g/dL Albumin 3.6 L (3.8-4.9) g/dL 06/20/21 Range/Units 05:56 RBC (4.10-5.20) X 10*6/uL Hgb (12.0-15.0) g/dL Hct (37.2-46.3) % RDW (11.5-14.5) % Plt Count (150-450) k/uL Lymphocytes # (0.90-5.00) X 10*3/uL Anion Gap (4.00-12.00) mmol/L BUN (7-17) mg/dL Est GFR (CKD-EPI)AfAm (60.0-200.0) Est GFR (CKD-EPI)NonAf (60.0-200.0) Total Bilirubin (0.2-1.3) mg/dL Troponin I 0.735 H* (0.000-0.034) ng/mL Total Protein (6.2-8.2) g/dL Albumin (3.8-4.9) g/dL
--- NOTE | 2021-06-20 12:39 | XR ---
EXAMINATION TYPE: XR hand complete RT DATE OF EXAM: 06/20/2021 COMPARISON: NONE HISTORY: 89-year-old female fall and hand pain TECHNIQUE: 3 views FINDINGS: Moderate to advanced osteoarthritic changes especially at the IP joints and to a lesser degree at the PIP joints. Prominent marginal spurring and joint space narrowing is present. There is additional yasmin int space narrowing noted at the third MCP joint. No soft tissue calcifications. No definite marginal erosions. Radial and ulnar deviation deformities of the fingers due to the underlying arthropathy. Ulnar-sided soft tissue swelling. Negative ulnar variance noted. No acute fracture, subluxation, disl ocation. Oivp-be-ohioyhbb degenerative change base of the thumb. Possible subtle cortical step off along the radial sided cortical margin of the fifth proximal metaca rpal base seen only on the AP view. IMPRESSION: 1. Possible subtle cortical step off radial sided metacarpal base only seen on the AP view. If pain l ocalizes here, a subtle nondisplaced fractures difficult to exclude. 2. Prominent ulnar-sided soft tissue swelling at the wrist and hand. 3. Moderate to advanced osteoarthritic changes throughout the fingers.
[2021-06-20] MEDS: ATORVASTATIN 20 MG TAB PO SCH (19:10)
[2021-06-20] MEDS: DOXAZOSIN 4 MG TAB PO SCH (19:10)
[2021-06-20] MEDS: LOSARTAN 50 MG TAB PO SCH (19:11)
[2021-06-20] MEDS ORDERED: MELATONIN 5 MG TABLET PO STA (22:12)
[2021-06-21] MEDS: LEVOTHYROXINE 88 MCG TAB PO SCH (05:52)
--- NOTE | 2021-06-21 07:37 | ECHOF ---
Referral Reason:trop elev, syncope MEASUREMENTS -------- HEIGHT: 160.0 cm WEIGHT: 46.3 kg BP: 169/69 RVIDd: 2.6 cm (< 3.3) IVSd: 1.4 cm (0.6 - 1.1) LVIDd: 3.5 cm (3.9 - 5.3) LVPWd: 1.4 cm (0.6 - 1.1) IVSs: 1.8 cm LVIDs: 2.1 cm LVPWs: 2.0 cm LA Diam: 3.7 cm (2.7 - 3.8) LAESV Index (A-L): 28.64 ml/m Ao Diam: 2.9 cm (2.0 - 3.7) AV Cusp: 2.0 cm (1.5 - 2.6) MV EXCURSION: 12.690 mm (> 18.000) MV EF SLOPE: 45 mm/s (70 - 150) EPSS: 0.4 cm MV E Isael: 1.26 m/s MV DecT: 376 ms MV A Isael: 1.10 m/s MV E/A Ratio: 1.15 RAP: 5.00 mmHg RVSP: 45.35 mmHg FINDINGS -------- Resting bradycardia (HR<60bpm). This was a technically adequate study. The left ventricular size is normal. There is moderate concentric left ventricular hypertrophy. O verall left ventricular systolic function is normal with, an EF between 60 - 65 %. The right ventricle is normal in size. Normal LA size by volume 22+/-6 ml/m2. The right atrium is normal in size. Interatrial and interventricular septum intact. There is mild aortic valve sclerosis. The mitral valve leaflets are mildly thickened. Mild mitral annular calcification present. Mild m itral regurgitation is present. The peak and mean MV gradients are 13.37mmHg 4.34mmHg as measured by doppler. Iabn-yr-xujjwpjm tricuspid regurgitation present. There is mild to moderate pulmonary hypertension. The right ventricular systolic pressure, as measured by Doppler, is 45.35mmHg. The pulmonic valve was not well visualized. The aortic root size is normal. Normal inferior vena cava with normal inspiratory collapse consistent with estimated right atrial pre ssure of 5 mmHg. There is no pericardial effusion. CONCLUSIONS -------- 1. The left ventricular size is normal. 2. There is moderate concentric left ventricular hypertrophy. 3. Overall left ventricular systolic function is normal with, an EF between 60 - 65 %. 4. There is mild aortic valve sclerosis. 5. The mitral valve leaflets are mildly thickened. 6. Mild mitral annular calcification present. 7. Mild mitral regurgitation is present. 8. The peak and mean MV gradients are 13.37mmHg 4.34mmHg as measured by doppler. 9. Srju-jh-pkfrflqm tricuspid regurgitation present. 10. There is mild to moderate pulmonary hypertension. 11. The right ventricular systolic pressure, as measured by Doppler, is 45.35mmHg. 12. The aortic root size is normal. 13. There is no pericardial effusion. BAND SEWER: Elisa Ronquillo RDCS
[2021-06-21] MEDS: ESCITALOPRAM 10 MG TAB PO SCH (07:45)
[2021-06-21] MEDS: ASPIRIN 81 MG PO SCH (07:46)
[2021-06-21] MEDS: ISOSORBIDE MONONITRATE ER 30 MG TAB.ER.24H PO SCH (07:46)
[2021-06-21] MEDS: ENOXAPARIN 40 MG/0.4 ML SYRINGE SQ SCH (07:46)
[2021-06-21] MEDS: carvediloL 12.5 MG TAB PO SCH (08:07)
[2021-06-21 09:00] LABS: African American GFR (CKD) 49.4 (60.0-200.0); BUN/Creat Ratio 19.65 Ratio (12.00-20.00); Blood Urea Nitrogen 22.4 mg/dL (9.0-27.0); Calcium 8.7 mg/dL (8.7-10.3); Carbon Dioxide 23.3 mmol/L (21.6-31.8); Chloride 108 mmol/L (96-109); Glucose 98 mg/dL (70-110); LDL Cholesterol,Calculated 50.9 mg/dL (0.0-131.0); Magnesium 2.1 mg/dL (1.5-2.4); Non-African American GFR(CKD) 42.6 (60.0-200.0); Potassium 3.9 mmol/L (3.5-5.5); Sodium 142 mmol/L (135-145); VLDL Calculation 16.34 mg/dL (5.00-40.00)
[2021-06-21] MEDS ORDERED: amLODIPine 10 MG TAB PO SCH (09:15)
[2021-06-21] MEDS: METOPROLOL TARTRATE 50 MG TAB PO SCH (10:06)
[2021-06-21 10:34] LABS: HCT 30.5 % (37.2-46.3); HGB 9.6 g/dL (12.0-15.0); MCH 29.4 pg (27.0-32.0); MCHC 31.5 g/dL (32.0-37.0); MCV 93.3 fL (80.0-97.0); Platelet Count 110 X 10*3/uL (140-440); RBC 3.27 X 10*6/uL (4.10-5.20); RDW 15.2 % (11.5-14.5); WBC 4.42 X 10*3/uL (4.50-10.00)
--- NOTE | 2021-06-21 10:59 | P.PN ---
Subjective HISTORY OF PRESENTING ILLNESS This is a pleasant 89-year-old female past medical history significant for hypertension, dyslipidemia and hypothyroidism. She denies prior history of coronary artery disease and does not follow in the office with a [employer]. She is somewhat of a poor historian. Information is mostly obtained from [facility] staff and medical record however the patient doesn't answer questions about the situation appropriately. We have been asked to see in consultation for chest pain. She states she was getting off the bus when she tripped over a curb causing her to fall. She denies syncope. She struck her face and has a laceration over the right eye with a bandage in place. She complains of feeling discomfort in her chest prior to falling. She denies shortness of breath, dizziness or palpitations. Blood pressure on arrival was 240/120 and 254/96. 06/21/2021 Patient seen and examined sitting up in bed in no acute distress. She has no symptoms of chest discomfort and breathing is stable. Blood pressure this morning was 209/71 with a heart rate of 50 6 repeat by the nurse prior to medication administration revealed blood pressure was 103/50 with a heart rate of 59. Currently Coreg is being held secondary to bradycardia. Echocardiogram obtained reveals preserved LV systolic function with ejection fraction 60-65%, mild MR, mean gradient across the mitral valve of 4 mmHg, mild to moderate TR a nd mild pulmonary hypertension with an RVSP of 45 mmHg. PHYSICAL EXAMINATION CONSTITUTIONAL: No apparent distress. HEENT: Head is normocephalic. Pupils are equal, round. Sclerae anicteric. Mucous membranes of the mouth are moist. No JVD. No carotid bruit. CHEST EXAMINATION: Lungs are clear to auscultation. No chest wall tenderness is noted on palpation or with deep breathing. HEART EXAMINATION: Regular rate and rhythm. S1, S2 heard. Systolic ejection murmur at the base, no gallops or rub. EXTREMITIES: 2+ peripheral pulses, no lower extremity edema and no calf tenderness. ASSESSMENT Mechanical fall NSTEMI Chest pain Hypertensive emergency Dyslipidemia Altered mental status PLAN Change beta analy to Lopressor 50 mg in the morning. Clinically stable from a cardiac perspective. Follow up upon discharge with Dr. Adorno in the office in one to 2 weeks. Nurse Practitioner note has been reviewed, I agree with a documented findings and plan of care. Patient was seen and examined. Objective - Vital Signs Vital signs: Vital Signs Temp 97.8 F 06/21/21 07:00 Pulse 59 L 06/21/21 10:10 Resp 20 06/21/21 07:00 BP 103/50 06/21/21 10:10 Pulse Ox 96 06/21/21 07:00 Intake & Output 06/20/21 06/21/21 06/21/21 18:59 06:59 18:59 Intake Total 118 Balance 118 Weight 46.266 kg Intake: Oral 118 Other: Voiding Method Toilet Toilet # Voids 2 1 # Bowel Movements 1 1 - Labs CBC & Chem 7: 06/21/21 05:50 06/21/21 05:50 Labs: Abnormal Lab Results - Last 24 Hours (Table) 06/21/21 06/21/21 Range/Units 05:50 05:50 WBC 4.42 L (4.50-10.00) X 10*3/uL RBC 3.27 L (4.10-5.20) X 10*6/uL Hgb 9.6 L (12.0-15.0) g/dL Hct 30.5 L (37.2-46.3) % MCHC 31.5 L (32.0-37.0) g/dL RDW 15.2 H (11.5-14.5) % Plt Count 110 L (140-440) X 10*3/uL Est GFR (CKD-EPI)AfAm 49.4 L (60.0-200.0) Est GFR (CKD-EPI)NonAf 42.6 L (60.0-200.0)
--- NOTE | 2021-06-21 11:29 | P.CNOR ---
History of Present Illness - [facility] Consult date: 06/21/21 Consult reason: joint pain (Right hand pain/x-ray abnormality) History of present illness: Patient is an 89-year-old female who presented to [facility] on 06/19/2021 for evaluation after a fall that had occurred. Patient was apparently getting off of a bus when she tripped and fell, hitting her head during the fall. She was brought to [facility] for further evaluation, this would lead test and imaging test. Initial workup including CT scans of the head and neck showed no acute processes. It was determined at that time that the patient had severely elevated blood pressure and other lab abnormalities, she was admitted to internal medicine for further workup. Cardiology has also been on the case. Patient did end up with a laceration to the right forehead, this was assessed in the emergency room. Since being in the hospital, patient is complained of some discomfort to the right hand, initial x-rays were done on 06/20/2021. X-rays did show some cortical changes involving the base of the fifth metacarpal, orthopedic team was then consulted. Patient was evaluated today at bedside, she is resting comfortably. She states that the discomfort in the hand has significantly improved. She still notes discomfort on the dorsum of the hand along the fourth and fifth metacarpal base. Patient denies any previous surgery involving the right upper extremity. Besides some mild discomfort near the area of the laceration on her forehead, she has no other orthopedic complaints. She denies any new onset cervical, thoracic or lumbar pain. She denies any numbness or tingling in the bilateral upper or lower extremities. She denies any acute changes this to include loss of bowel or bladder function. Review of Systems Constitutional: Reports as per HPI Past Medical History Past Medical History: Heart Failure, Hyperlipidemia, Hypertension, Pneumonia, Thyroid Disorder History of Any Multi-Drug Resistant Organisms: None Reported Past Surgical History: Adenoidectomy, Cholecystectomy, Tonsillectomy Smoking Status: Never smoker Past Alcohol Use History: None Reported Past Drug Use History: None Reported Medications and Allergies Home Medications Medication Instructions Recorded Confirmed Type Atorvastatin [Lipitor] 20 mg PO HS 06/19/21 06/19/21 History Calcium/Magnesium/Zinc 1 tab PO DAILY 06/19/21 06/19/21 History [Tonovzq-Xnhdzsifr-Nhwo Tablet] Carvedilol [Coreg] 25 mg PO BID-W/MEALS 06/19/21 06/19/21 History Cyanocobalamin (Vitamin B-12) 5,000 mcg PO DAILY 06/19/21 06/19/21 History [Vitamin B12] Doxazosin [Cardura] 4 mg PO HS 06/19/21 06/19/21 History Escitalopram Oxalate [Lexapro] 10 mg PO DAILY 06/19/21 06/19/21 History Famotidine 40 mg PO DAILY 06/19/21 06/19/21 History Furosemide [Lasix] 20 mg PO DAILY 06/19/21 06/19/21 History Levothyroxine Sodium [Synthroid] 88 mcg PO DAILY 06/19/21 06/19/21 History Losartan Potassium 100 mg PO HS 06/19/21 06/19/21 History Potassium Chloride [Potassium 8 meq PO DAILY 06/19/21 06/19/21 History Chloride ER] Vit C/E/Zn/Coppr/Lutein/Zeaxan 1 cap PO BID 06/19/21 06/19/21 History [Preservision Areds 2 Softgel] Allergies Allergy/AdvReac Type Severity Reaction Status Date / Time amoxicillin Allergy Rash/Hives Verified 06/19/21 16:08 Sulfa (Sulfonamide Allergy Unknown Verified 06/19/21 16:08 Antibiotics) Tetanus Vaccines and Toxoid Allergy Unknown Verified 06/19/21 16:08 valsartan [From Diovan] Allergy Unknown Verified 06/19/21 16:08 Physical Examination Right upper extremity: No obvious open sores or lesions are present throughout the extremity Mild soft tissue swelling present on the dorsum of the hand, there is also some mild bruising noted on the palmar aspect of the third and fourth digit near the PIP joints. Obvious arthritic deformity is present and most DIP and PIP joints of all digits Patient demonstrates tenderness with palpation at the base of the fifth metacarpal, no tenderness is appreciated with palpation throughout the remaining aspect of the hand both the dorsal and volar aspect. She is nontender at the distal radius and ulna. Patient demonstrates no forearm tenderness, elbow, humerus, shoulder tenderness with palpation Range of motion is intact at the shoulder, elbow, wrist. She is able to wiggle all the fingers and make a fist with minimal difficulty. Sensation to light touch is intact throughout the extremity, her radial and ulnar pulses are 2+ Results - Labs Labs: Abnormal Lab Results - Last 24 Hours (Table) 06/21/21 06/21/21 Range/Units 05:50 05:50 WBC 4.42 L (4.50-10.00) X 10*3/uL RBC 3.27 L (4.10-5.20) X 10*6/uL Hgb 9.6 L (12.0-15.0) g/dL Hct 30.5 L (37.2-46.3) % MCHC 31.5 L (32.0-37.0) g/dL RDW 15.2 H (11.5-14.5) % Plt Count 110 L (140-440) X 10*3/uL Est GFR (CKD-EPI)AfAm 49.4 L (60.0-200.0) Est GFR (CKD-EPI)NonAf 42.6 L (60.0-200.0) H & H 06/19/21 06/20/21 06/21/21 Range/Units 12:32 05:56 05:50 Hgb 12.2 10.1 L 9.6 L (11.4-16.0) gm/dL Hct 36.2 31.2 L 30.5 L (34.0-46.0) % Coagulation 06/19/21 Range/Units 12:32 INR 1.1 (<1.2) Result Diagrams: 06/21/21 05:50 06/21/21 05:50 - Diagnostic results Wrist/Hand x-ray: report reviewed, image reviewed (Images and reports were reviewed. Images demonstrate possible arthritic changes throughout the PIP and DIP joints of most digits. There is some cortical change noted at the base of the fifth metacarpal.) Assessment and Plan Assessment: Right hand pain Occult right fifth metacarpal base fracture Right hand osteoarthritis, PIP and DIP joints of all digits Right forehead laceration Status post fall from standing Other medical comorbidities Plan: I was able to discuss the case, including both physical exam findings and imaging studies my attending Dr. Morris. There is concern for occult fracture involving the base of the right fifth metacarpal. No orthopedic surgical intervention recommended at this time. Discussed with patient treatment options, a Velcro wrist splint will be prescribed, I anticipate patient will be fitted for this on 06/22/2021. Currently patient has a IV in that arm which will have to be removed Discussed activity level modification/restrictions with regards to the right upper extremity Ice the extremity and elevate him symptomatically Other medical specific recommendations Discharge planning: After discharge in the outpatient setting with Dr. Morris in the next 2-3 weeks, will stop by to assess the brace once patient was fitted. We'll be available for any further questions. Time with Patient: Less than 30
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
[2021-06-21] MEDS: LOSARTAN 50 MG TAB PO SCH (21:14)
[2021-06-21] MEDS: ATORVASTATIN 20 MG TAB PO SCH (21:14)
[2021-06-21] MEDS: DOXAZOSIN 4 MG TAB PO SCH (21:15)
[2021-06-22] MEDS: LEVOTHYROXINE 88 MCG TAB PO SCH (06:01)
[2021-06-22] MEDS: ISOSORBIDE MONONITRATE ER 30 MG TAB.ER.24H PO SCH (07:43)
[2021-06-22] MEDS: METOPROLOL TARTRATE 50 MG TAB PO SCH (07:43)
[2021-06-22] MEDS: ESCITALOPRAM 10 MG TAB PO SCH (07:43)
[2021-06-22] MEDS: ASPIRIN 81 MG PO SCH (07:43)
[2021-06-22] MEDS: ENOXAPARIN 40 MG/0.4 ML SYRINGE SQ SCH (07:43)
[2021-06-22 07:53] VITALS: RESP 16
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
--- NOTE | 2021-06-22 10:12 | P.PN ---
Subjective Progress Note Date: 06/22/21 Principal diagnosis: Right hand pain, right fifth metacarpal base fracture Patient evaluated today at bedside, she is resting comfortably. She states that she is not having very much discomfort in the right hand. She has no other orthopedic complaints at this time. Objective - Vital Signs Vital signs: Vital Signs Temp 97.6 F 06/22/21 07:51 Pulse 61 06/22/21 07:51 Resp 16 06/22/21 07:51 BP 194/76 06/22/21 08:27 Pulse Ox 98 06/22/21 07:51 Intake & Output 06/21/21 06/22/21 06/22/21 18:59 06:59 18:59 Intake Total 354 200 120 Balance 354 200 120 Intake: Oral 354 200 120 Other: Voiding Method Toilet Toilet # Voids 1 1 1 - Exam Right upper extremity: No obvious open sores or lesions are present throughout the extremity Mild soft tissue swelling present on the dorsum of the hand, there is also some mild bruising noted on the palmar aspect of the third and fourth digit near the PIP joints. Obvious arthritic deformity is present and most DIP and PIP joints of all digits Patient demonstrates tenderness with palpation at the base of the fifth metacarpal, no tenderness is appreciated with palpation throughout the remaining aspect of the hand both the dorsal and volar aspect. She is nontender at the distal radius and ulna. Patient demonstrates no forearm tenderness, elbow, humerus, shoulder tenderness with palpation Range of motion is intact at the shoulder, elbow, wrist. She is able to wiggle all the fingers and make a fist with minimal difficulty. Sensation to light touch is intact throughout the extremity, her radial and ulnar pulses are 2+ - Labs CBC & Chem 7: 06/21/21 05:50 06/21/21 05:50 Labs: Abnormal Lab Results - Last 24 Hours (Table) 06/21/21 Range/Units 05:50 WBC 4.42 L (4.50-10.00) X 10*3/uL RBC 3.27 L (4.10-5.20) X 10*6/uL Hgb 9.6 L (12.0-15.0) g/dL Hct 30.5 L (37.2-46.3) % MCHC 31.5 L (32.0-37.0) g/dL RDW 15.2 H (11.5-14.5) % Plt Count 110 L (140-440) X 10*3/uL Assessment and Plan Assessment: Right hand pain Occult right fifth metacarpal base fracture Right hand osteoarthritis, PIP and DIP joints of all digits Right forehead laceration Status post fall from standing Other medical comorbidities Plan: Discussed again with nursing today to have case management reach out to medical supply for the wrist brace Ice the extremity and elevate him symptomatically Other medical specific recommendations Discharge planning: After discharge in the outpatient setting with Dr. Morris in the next 2-3 weeks, will stop by to assess the brace once patient was fitted. We'll be available for any further questions. Time with Patient: Less than 30
[2021-06-22] MEDS: FUROSEMIDE 20 MG TAB PO SCH (10:47)
[2021-06-22] MEDS: amLODIPine 10 MG TAB PO SCH (10:47)
[2021-06-22] MEDS: carvediloL 12.5 MG TAB PO SCH ×2 (10:48→17:24)
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
[2021-06-22] MEDS: DOXAZOSIN 4 MG TAB PO SCH (20:28)
[2021-06-22] MEDS: LOSARTAN 50 MG TAB PO SCH (20:28)
[2021-06-22] MEDS: ATORVASTATIN 20 MG TAB PO SCH (20:28)
[2021-06-23] MEDS: LEVOTHYROXINE 88 MCG TAB PO SCH (06:13)
[2021-06-23 07:26] VITALS: PULSE 57
[2021-06-23] MEDS: carvediloL 12.5 MG TAB PO SCH (07:51)
[2021-06-23] MEDS: ASPIRIN 81 MG PO SCH (08:23)
[2021-06-23] MEDS: amLODIPine 10 MG TAB PO SCH (08:23)
[2021-06-23] MEDS: FUROSEMIDE 20 MG TAB PO SCH (08:23)
[2021-06-23] MEDS: ESCITALOPRAM 10 MG TAB PO SCH (08:23)
[2021-06-23] MEDS: ISOSORBIDE MONONITRATE ER 30 MG TAB.ER.24H PO SCH (08:24)
[2021-06-23] MEDS ORDERED: ENOXAPARIN 30 MG/0.3 ML SYRINGE SQ SCH (09:00)
--- NOTE | 2021-06-23 09:09 | P.PN ---
Subjective Progress Note Date: 06/23/21 Principal diagnosis: Right hand pain, right fifth metacarpal base fracture Patient evaluated today at bedside, she is resting comfortably. She states that she is not having very much discomfort in the right hand. She has no other orthopedic complaints at this time. Objective - Vital Signs Vital signs: Vital Signs Temp 97.5 F L 06/23/21 07:24 Pulse 57 L 06/23/21 07:24 Resp 16 06/23/21 07:24 BP 229/85 06/23/21 07:24 Pulse Ox 96 06/23/21 07:24 Intake & Output 06/22/21 06/23/21 06/23/21 18:59 06:59 18:59 Intake Total 340 300 Balance 340 300 Intake: Oral 340 300 Other: Voiding Method Toilet Toilet # Voids 1 2 - Exam Right upper extremity: No obvious open sores or lesions are present throughout the extremity Mild soft tissue swelling present on the dorsum of the hand, there is also some mild bruising noted on the palmar aspect of the third and fourth digit near the PIP joints. Obvious arthritic deformity is present and most DIP and PIP joints of all digits Patient demonstrates tenderness with palpation at the base of the fifth metacarpal, no tenderness is appreciated with palpation throughout the remaining aspect of the hand both the dorsal and volar aspect. She is nontender at the distal radius and ulna. Patient demonstrates no forearm tenderness, elbow, humerus, shoulder tenderness with palpation Range of motion is intact at the shoulder, elbow, wrist. She is able to wiggle all the fingers and make a fist with minimal difficulty. Sensation to light touch is intact throughout the extremity, her radial and ulnar pulses are 2+ - Labs CBC & Chem 7: 06/21/21 05:50 06/21/21 05:50 Assessment and Plan Assessment: Right hand pain Occult right fifth metacarpal base fracture Right hand osteoarthritis, PIP and DIP joints of all digits Right forehead laceration Status post fall from standing Other medical comorbidities Plan: Patient will be fitted today for wrist splint Ice the extremity and elevate him symptomatically Other medical specific recommendations Discharge planning: Stable via orthopedic standpoint for discharge Time with Patient: Less than 30
[2021-06-23 09:26] VITALS: TEMP 95
[2021-06-23] MEDS ORDERED: DOXAZOSIN 2 MG TAB PO SCH (09:30)
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
[2021-06-23 10:48] VITALS: BP 138/66
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
== END 2021-06-23 12:38 | DRG 281 ==
LOC: EC 11:48 → 6NMEDSUR 15:57 → OBSVTOIN 06-20 13:27
PROVIDERS: ADMIT Internal Medicine; ATTEND Internal Medicine
PROC: 0HQ1XZZ Repair Face Skin, External Approach (ICD-10-PCS; principal; 2021-06-20)
DX: I21.4 Non-ST elevation (NSTEMI) myocardial infarction (principal); I16.1 Hypertensive emergency; E03.9 Hypothyroidism, unspecified; E78.5 Hyperlipidemia, unspecified; S01.111A Laceration without foreign body of right eyelid and periocular area, initial encounter; I25.10 Atherosclerotic heart disease of native coronary artery without angina pectoris; I11.0 Hypertensive heart disease with heart failure; I50.9 Heart failure, unspecified; S62.316A Displaced fracture of base of fifth metacarpal bone, right hand, initial encounter for closed fracture; R41.82 Altered mental status, unspecified; W10.1XXA Fall (on)(from) sidewalk curb, initial encounter; M19.041 Primary osteoarthritis, right hand; I27.20 Pulmonary hypertension, unspecified; F03.90 Unspecified dementia, unspecified severity, without behavioral disturbance, psychotic disturbance, mood disturbance, and anxiety; I07.1 Rheumatic tricuspid insufficiency; Z79.890 Hormone replacement therapy; Z79.899 Other long term (current) drug therapy; Z87.01 Personal history of pneumonia (recurrent); Z90.49 Acquired absence of other specified parts of digestive tract; Z98.890 Other specified postprocedural states; Z88.1 Allergy status to other antibiotic agents; Z88.2 Allergy status to sulfonamides; Z88.7 Allergy status to serum and vaccine; Z88.8 Allergy status to other drugs, medicaments and biological substances
CPT/HCPCS: 12011; 36415; 70450; 71046; 72125; 80048; 80053; 80061; 83735; 84484; 85025; 85027; 85610; 85730; 87635; 93005; 93306; 96365; 96375; 99285